=== PATIENT | male | born 1985 | race Caucasian/White ===

== ENCOUNTER 2020-11-29 20:07 | Emergency (ER) | payer OTHER ==
[~2020-11-29] VITALS: Ht 172.7 cm; Wt 70.3 kg
[2020-11-29 20:24] VITALS: BP 124/68
--- NOTE | 2020-11-29 20:27 | NUR ---
ALONDRA ROWE at bed side
[2020-11-29] MEDS ORDERED: ACET-2605 PO (20:38)
[2020-11-29] MEDS ORDERED: BACI30OI9 TP (20:38)
== END 2020-11-29 21:17 | disposition home or self-care (01) ==
LOC: ER 20:12
DX: S61.002A Unspecified open wound of left thumb without damage to nail, initial encounter (principal); Z60.2 Problems related to living alone; W26.8XXA Contact with other sharp object(s), not elsewhere classified, initial encounter; Y93.89 Activity, other specified; Y92.89 Other specified places as the place of occurrence of the external cause; Y99.8 Other external cause status
CPT/HCPCS: 99282; A6403